=== PATIENT | male | born 1970 | race Caucasian/White ===

== ENCOUNTER 2019-07-19 11:29 | Day surgery (SDC) | payer BC ==
[~2019-07-19 11:29] MED LIST: LACTATED RINGERS 1,000 ML IV.SOLN IV ONE; LIDOCAINE HCL 2% PF 100MG/5ML VIAL IJ ONE; PROPOFOL 200 MG/20 ML VIAL IV ONE
--- NOTE | 2019-07-21 12:29 | GI Report ---
DATE OF PROCEDURE: 07/19/2019 REFERRING PHYSICIAN: Kirsten Santana M.D. PROCEDURE PERFORMED: Colonoscopy, polypectomy, biopsy. SURGEON: Tad Rothman M.D., F.A.C.P. INDICATION FOR PROCEDURE: The patient is a 48-year-old and comes in for screening colonoscopy. She denies family history of colorectal cancer. Denies any change in bowel habits. PROCEDURE MEDICATION: Propofol, as per Anesthesia. DESCRIPTION OF PROCEDURE: An Olympus video colonoscope was advanced in the rectum. The patient does have significant diverticular disease throughout his whole colon, sigmoid, descending colon, transverse colon, ascending colon. The colonoscope was advanced all the way to the cecum. The appendiceal orifice, terminal ileum are normal. On slow withdrawal, the cecum, ascending colon, transverse colon no obvious intraluminal lesions besides the diverticular disease. Descending colon: There is no obvious intraluminal lesions outside of diverticular disease. In the sigmoid there is extensive diverticular disease and a little, 2-3 mm polyp, cold biopsy removed at 30 cm in the sigmoid. In the rectum, retroflexion showed internal hemorrhoid, no other abnormality. The patient tolerated the procedure well. FINDINGS: 1. Extensive diverticular disease throughout his colon. 2. Small polyp at 30 cm in the sigmoid. RECOMMENDATIONS: 1. Increase fiber in the diet. Add Metamucil, Benefiber or Citrucel. 2. Pending the pathology of the polyp, he needs his colon relooked at again between 5 and 10 years. TAD ROTHMAN M.D., F.A.C.P. Shira Job#: [id number] Cc: Kirsten Santana M.D. Sent via [facility]
== END 2019-07-19 13:30 | disposition home or self-care (01) ==
LOC: OPSURG 11:29
PROVIDERS: ATTEND Internal Medicine Gastroenterology
DX: K63.5 Polyp of colon (principal); K57.30 Diverticulosis of large intestine without perforation or abscess without bleeding
CPT/HCPCS: 45380; J2001; J2704; J7120